=== PATIENT | male | born 1960 | race Caucasian/White ===

== ENCOUNTER 2017-02-17 10:45 | Emergency (ER) | payer OTHER ==
[~2017-02-17] VITALS: Ht 182.9 cm; Wt 108.9 kg
[2017-02-17 10:52] VITALS: BP 124/72
--- NOTE | 2017-02-17 12:41 | ED MVC/FALL/TRAUMA COMPLAINT ---
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 STATES A PIECE OF METAL CUT BOTH AREAS. PT UNSURE OF TETANUS. Triage Nurses Notes Reviewed? yes HPI: 57 yo M PMH GERD presenting with multiple lacerations. Patient was cleaning out his grudge, pulled a piece of wood forward, accidentally pulled metal fencing across lower legs, sustained multiple lacerations to right lateral bilateral lower extremities. Denies falls or head trauma, neck pain, focal neurologic symptoms. Unknown last tetanus. (ULICES HAYWARD MD) Past History Travel History Traveled to [place] past 21 day No Medical History Any Pertinent Medical History? see below for history Neurological: NONE EENT: NONE Cardiovascular: NONE Respiratory: NONE Gastrointestinal: NONE, GERD Hepatic: NONE Renal: NONE Musculoskeletal: NONE Psychiatric: NONE Endocrine: NONE Blood Disorders: NONE Cancer(s): NONE CIVIL ENGINEERING DIRECTOR/Reproductive: NONE Surgical History Surgical History: none Psychosocial History What is your primary language Mongolian Tobacco Use: Never used Family History Hx Contributory? No (ULICES HAYWARD MD) Review of Systems Review of Systems Constitutional: Reports: no symptoms. Eyes: Reports: no symptoms. Ears, Nose, Throat, Mouth: Reports: no symptoms. Respiratory: Reports: no symptoms. Cardiovascular: Reports: no symptoms. Gastrointestinal/Abdominal: Reports: no symptoms. Genitourinary: Reports: no symptoms. Musculoskeletal: Reports: no symptoms. Skin: Reports: see HPI. Neurological/Psychological: Reports: no symptoms. All Other Systems: Reviewed and Negative (ULICES HAYWARD MD) Physical Exam Physical Exam General Appearance: well developed/nourished, no apparent distress, alert, awake Head: atraumatic Eyes: Bilateral: normal appearance. Ears, Nose, Throat, Mouth: moist mucous membrane Neck: normal inspection, supple, full range of motion, no midline tenderness Respiratory: normal breath sounds, no respiratory distress, lungs clear Cardiovascular: regular rate/rhythm, normal peripheral pulses Peripheral Pulses: 2+ tibialis posterior (R), 2+ tibialis posterior (L), 2+ dorsalis pedis (R), 2+ dorsalis pedis (L) Gastrointestinal: soft, non-tender Back: no vertebral tenderness Neurologic/Psych: no motor/sensory deficits, awake, alert, oriented x 3 Comments: Lower extremities: 3-4 cm laceration to the right lateral leg, 2-3 cm laceration to left distal medial leg, 2-3 cm laceration to left distal medial leg, 2+ DP and PT pulses, no motor or sensory deficits Core Measures ACS in differential dx? No Severe Sepsis Present: No Septic Shock Present: No (YESY CABRAL,ULICES) Progress Differential Diagnosis: aoritic dissection, abd injury, C/T/L spine injury, ext injury, ICH, pelvis injury, pnemothorax, spinal cord injury Plan of Care: Physician MDM: 57 yo M PMH GERD presenting with multiple lacerations. VSS, exam as above. Tetanus given. Lacerations anesthetized with lidocaine, cleaned with sterile water, examined through full range of motion of bilateral lower extremities without visible muscle or tendon involvement, repaired with 4-0 Ethilon sutures with good approximation of wound margins. Discharged with return precautions, teaching about laceration care, plan to follow up with PMD in 7-10 days for suture removal. (YESY CABRAL,ULICES) Departure Departure Disposition: HOME OR SELF CARE Condition: Stable Clinical Impression Primary Impression: Laceration Referrals: KAREL CABRAL,NALLELY Jefferson (PCP/Family) Additional Instructions: Follow laceration care instructions as outlined in the discharge paperwork. Follow-up with your primary care physician in 7-10 days for removal of sutures. Return to the emergency department for any new, worsening, or concerning symptoms. Departure Forms: Customer Survey General Discharge Information (YESY CABRAL,ULICES) Resident Co-Sign Statement Statement: ED Attending supervision documentation- [X] I saw and evaluated the patient. I have also reviewed all the pertinent lab results and diagnostic results. I agree with the findings and the plan of care as documented in the Resident's documentation. [X] I have reviewed the ED Record and agree with the Resident's documentation. [] Additions or exceptions (if any) to the Resident's note and plan are summarized below: [] (MONIKA CABRAL,DICK)
== END 2017-02-17 13:24 ==
LOC: ERH 10:45
DX: S81.812A Laceration without foreign body, left lower leg, initial encounter (principal); S81.811A Laceration without foreign body, right lower leg, initial encounter; W45.8XXA Other foreign body or object entering through skin, initial encounter; Y93.89 Activity, other specified; Y92.9 Unspecified place or not applicable
CPT/HCPCS: 90471; 90714